=== PATIENT | male | born 1960 | race Caucasian/White ===

== ENCOUNTER → 2022-08-09 | Outpatient (CLI) | payer OTHER | LOC: M RAD 12:01 | PROVIDERS: ATTEND Internal Medicine Pulmonary Disease | DX: J61 Pneumoconiosis due to asbestos and other mineral fibers (principal) ==

== ENCOUNTER → 2024-01-14 | Outpatient (CLI) | payer OTHER | LOC: M RAD 15:21 | PROVIDERS: ATTEND Internal Medicine Pulmonary Disease | DX: J61 Pneumoconiosis due to asbestos and other mineral fibers (principal); J44.9 Chronic obstructive pulmonary disease, unspecified; Z87.891 Personal history of nicotine dependence ==

== ENCOUNTER 2024-02-09 16:41 | Inpatient (IN) | payer OTHER ==
[~2024-02-09] VITALS: Ht 172.7 cm; Wt 81.5 kg
[2024-02-09] MEDS ORDERED: MOM 30ML SUSPENSION UDC PO PRN (18:45)
[2024-02-09 19:07] VITALS: BP 148/82; TEMP 97.9; O2SAT 97
[2024-02-09] MEDS ORDERED: FURO20TA2 PO (19:24)
[2024-02-09] MEDS ORDERED: XARE20TA PO (19:24)
[2024-02-09] MEDS ORDERED: SPIR12.9 INH (19:24)
[2024-02-09] MEDS ORDERED: SERT-141 PO (19:24)
[2024-02-09] MEDS ORDERED: ADV250INH INH (19:24)
[2024-02-09] MEDS ORDERED: FERR324T2 PO (19:24)
[2024-02-09] MEDS ORDERED: VENTAER INH (19:24)
[2024-02-09] MEDS ORDERED: CARV25TA PO (19:24)
[2024-02-09] MEDS ORDERED: HOME MED LIST COMPLETE! XX SCH (19:25)
[2024-02-09 19:52] LABS: HEMOGLOBIN 12.1 g/dl (13.5-17.5); MEAN CORPUSCULAR HEMOGLOBIN 31.9 pg (27.0-33.0); MEAN CORPUSCULAR HGB CONC 34.6 g/dl (32.0-36.5); MEAN CORPUSCULAR VOLUME 92.3 fl (80.0-96.0); PLATELET COUNT, AUTOMATED 281 10^3/uL (150-450); RED BLOOD COUNT 3.79 10^6/uL (4.30-6.10)
[2024-02-09 20:00] VITALS: BP 132/90; TEMP 97.9; O2SAT 96
[2024-02-09] MEDS: ADVAIR HFA 115/21MCG INHALER INH SCH (20:00)
[2024-02-09 20:25] LABS: ALBUMIN 2.3 G/DL (3.2-5.2); BILIRUBIN,TOTAL 1.1 MG/DL (0.3-1.2); CALCIUM LEVEL 8.6 MG/DL (8.3-10.6); CREATININE FOR GFR 4.4 MG/DL (0.70-1.30); GLOMERULAR FILTRATION RATE 14.4 (>49); POTASSIUM SERUM 3.7 MMOL/L (3.5-5.1); TOTAL PROTEIN 6.1 G/DL (5.7-8.2)
[2024-02-09] MEDS: INSULIN LISPRO (NovoLOG) PER UNIT SC SCH (21:00)
[2024-02-09] MEDS ORDERED: DEXTROSE 50% 50ML SYRINGE IV PRN (21:05)
[2024-02-09] MEDS ORDERED: GLUCOSE 4 GM CHEW PO PRN (21:05)
[2024-02-09] MEDS ORDERED: GLUCAGON INJ 1MG VIAL SC PRN (21:05)
[2024-02-09] MEDS ORDERED: ALBUTEROL 90 MCG/ACT 8GM HFA INHALER INH PRN (21:45)
[2024-02-09] MEDS: FUROSEMIDE 100MG/10ML VIAL IV ONE (22:38)
[2024-02-09] MEDS: CARVedilol 12.5 MG TAB PO SCH (22:38)
[2024-02-09] MEDS: cefTRIAXone SOD 2 GM in D5W MINI-BAG PLUS 50 ML IV SCH (22:39)
[2024-02-09] MEDS: LIDOCAINE 5% (LIDODERM) PATCH TD SCH (22:39)
[2024-02-09] MEDS: KCL 20MEQ in NS 1000ML 1,000 ML IV SCH (22:40)
[2024-02-09] MEDS: HYDROMORPHONE HCL 0.5 MG/ 0.5 ML SYRINGE IV PRN (23:00)
[2024-02-09] MEDS: LIDOCAINE 2% 5ML JELLY UROJET TOP PRN (23:01)
[2024-02-10] VITALS (9 sets, daily range): BP systolic 102–159; BP diastolic 55–89; TEMP 97.5–98.8; O2SAT 90–98
[2024-02-10] MEDS: INSULIN LISPRO (NovoLOG) PER UNIT SC SCH (07:30)
[2024-02-10] MEDS: TIOTROPIUM INHALER/CAPSULE (SPIRIVA) INH SCH (08:00)
[2024-02-10] MEDS: SERTRALINE HCL 25 MG TABLET PO SCH (08:33)
[2024-02-10 09:32] LABS: HEMATOCRIT 37.2 % (42.0-52.0); HEMOGLOBIN 12.7 g/dl (13.5-17.5); MEAN CORPUSCULAR HEMOGLOBIN 31.8 pg (27.0-33.0); MEAN CORPUSCULAR HGB CONC 34.1 g/dl (32.0-36.5); MEAN CORPUSCULAR VOLUME 93.2 fl (80.0-96.0); PLATELET COUNT, AUTOMATED 319 10^3/uL (150-450); RED BLOOD COUNT 3.99 10^6/uL (4.30-6.10); WHITE BLOOD COUNT 11.6 10^3/uL (4.0-10.0)
[2024-02-10 09:57] LABS: ALBUMIN 2.3 G/DL (3.2-5.2); CREATININE FOR GFR 1.49 MG/DL (0.70-1.30); GLOMERULAR FILTRATION RATE 50.4 (>49); PHOSPHORUS LEVEL 4.2 MG/DL (2.4-5.1); POTASSIUM SERUM 3.4 MMOL/L (3.5-5.1)
[2024-02-10] MEDS: KCL 10MEQ/100ML SWI (KRUN) 10 MEQ in IV 1 EA IV ONE (12:14)
[2024-02-10] MEDS ORDERED: fentaNYL 100 MCG/2 ML INJECTION As Ordered ONE (12:56)
[2024-02-10] MEDS ORDERED: propofoL 200 MG/20 ML VIAL As Ordered ONE (12:56)
[2024-02-10] MEDS ORDERED: LIDOCAINE 2% 100MG/5ML SDV (FOR ANES.) As Ordered ONE (12:57)
[2024-02-10] MEDS ORDERED: ROCURONIUM BROMIDE 50MG/5ML VIAL As Ordered ONE (12:57)
[2024-02-10] MEDS: ceFAZolin 2 GM/D5W 50 ML IV BAG As Ordered ONE (13:57)
[2024-02-10] MEDS: LIDOCAINE 2% JELLY 6ML SYRINGE As Ordered ONE (14:06)
[2024-02-10] MEDS: LR 1,000 ML IV SCH (14:15)
[2024-02-10] MEDS ORDERED: fentaNYL 100 MCG/2 ML INJECTION IV PRN (14:15)
[2024-02-10] MEDS ORDERED: ONDANSETRON 4MG 2ML VIAL IV PRN (14:15)
[2024-02-10] MEDS ORDERED: HYDROMORPHONE HCL 0.5 MG/ 0.5 ML SYRINGE IV PRN (14:15)
[2024-02-10] MEDS ORDERED: oxyCODONE 5MG TAB PO PRN (14:15)
[2024-02-10] MEDS: TAMSULOSIN 0.4 MG CAP PO SCH (15:47)
[2024-02-10] MEDS: FINASTERIDE 5MG TAB PO SCH (15:47)
[2024-02-10 16:08] LABS: APPEARANCE, URINE HAZY (CLEAR); BACTERIA, URINE AUTO NEGATIVE (NEGATIVE); BILIRUBIN, URINE AUTO NEGATIVE (NEGATIVE); BLOOD, URINE BLOOD 3+ (NEGATIVE); COLOR, URINE YELLOW (YELLOW); GLUCOSE, URINE (UA) AUTO NEGATIVE (NEGATIVE); KETONE, URINE AUTO NEGATIVE (NEGATIVE); LEUKOCYTE ESTERASE, URINE AUTO 1+ (NEGATIVE); NITRITE, URINE AUTO NEGATIVE (NEGATIVE); PROTEIN, URINE AUTO 2+ mg/dL (NEGATIVE); RBC, URINE AUTO TNTC /HPF (0-3); SQUAMOUS EPITHELIAL CELL UR AU 0 /HPF (0-6); UROBILINOGEN, URINE AUTO 0.2 mg/dL (0.0-2.0); WBC, URINE AUTO 22 /HPF (0-3)
[2024-02-10] MEDS: ACETAMINOPHEN TAB 650MG DOSE (2X325MG) PO PRN (18:36)
[2024-02-11] VITALS (7 sets, daily range): BP systolic 110–150; BP diastolic 76–100; TEMP 97.3–98.8; O2SAT 93–95
[2024-02-11 05:50] LABS: HEMATOCRIT 33.5 % (42.0-52.0); HEMOGLOBIN 10.9 g/dl (13.5-17.5); MEAN CORPUSCULAR HEMOGLOBIN 31.2 pg (27.0-33.0); MEAN CORPUSCULAR HGB CONC 32.5 g/dl (32.0-36.5); PLATELET COUNT, AUTOMATED 252 10^3/uL (150-450); RED BLOOD COUNT 3.49 10^6/uL (4.30-6.10); WHITE BLOOD COUNT 11.4 10^3/uL (4.0-10.0)
[2024-02-11 06:18] LABS: ALKALINE PHOSPHATASE 102 U/L (46-116); ALT/SGPT 12 U/L (7.0-40); AST/SGOT 23 U/L (<34); BILIRUBIN,TOTAL 0.6 MG/DL (0.3-1.2); BLOOD UREA NITROGEN 15 MG/DL (9-23); CALCIUM LEVEL 7.9 MG/DL (8.3-10.6); CARBON DIOXIDE LEVEL 36 MMOL/L (20-31); CHLORIDE LEVEL 106 MMOL/L (98-107); CREATININE FOR GFR 0.74 MG/DL (0.70-1.30); GLOMERULAR FILTRATION RATE > 60.0 (>49); GLUCOSE, FASTING 134 MG/DL (74-106); POTASSIUM SERUM 3.5 MMOL/L (3.5-5.1); SODIUM LEVEL 142 MMOL/L (136-145); TOTAL PROTEIN 5.6 G/DL (5.7-8.2)
[2024-02-11 11:20] LABS: INR 1.36; PARTIAL THROMBOPLASTIN TIME 33.6 SECONDS (24.8-34.2); PROTHROMBIN TIME 16.3 SECONDS (12.5-14.5)
[2024-02-11] MEDS: POTASSIUM CHLORIDE 10MEQ SR TABLET PO ONE (11:22)
[2024-02-12 04:00] VITALS: BP 144/87; TEMP 97.5; O2SAT 94
[2024-02-12 05:53] LABS: HEMATOCRIT 33.3 % (42.0-52.0); MEAN CORPUSCULAR HEMOGLOBIN 31.6 pg (27.0-33.0); MEAN CORPUSCULAR VOLUME 95.7 fl (80.0-96.0); PLATELET COUNT, AUTOMATED 242 10^3/uL (150-450); RED BLOOD COUNT 3.48 10^6/uL (4.30-6.10); WHITE BLOOD COUNT 11.4 10^3/uL (4.0-10.0)
[2024-02-12 06:24] LABS: BLOOD UREA NITROGEN 9 MG/DL (9-23); CALCIUM LEVEL 7.5 MG/DL (8.3-10.6); CARBON DIOXIDE LEVEL 26 MMOL/L (20-31); CHLORIDE LEVEL 109 MMOL/L (98-107); CREATININE FOR GFR 0.55 MG/DL (0.70-1.30); GLOMERULAR FILTRATION RATE > 60.0 (>49); GLUCOSE, FASTING 84 MG/DL (74-106); PHOSPHORUS LEVEL 2.2 MG/DL (2.4-5.1); POTASSIUM SERUM 3.8 MMOL/L (3.5-5.1); SODIUM LEVEL 139 MMOL/L (136-145)
[2024-02-12 09:04] VITALS: BP 123/88
[2024-02-12] MEDS ORDERED: ISOVUE-370 76% 100ML VIAL As Ordered ONE (10:04)
[2024-02-12 10:45] VITALS: BP 146/95; TEMP 98.1; O2SAT 95
[2024-02-12] MEDS ORDERED: CEFD1CAP9 PO (11:08)
[2024-02-12] MEDS ORDERED: FLOM0.4C39 PO (11:08)
[2024-02-12] MEDS ORDERED: FINA5TAB2 PO (11:08)
[2024-02-12] MEDS ORDERED: LIDO1PAD TOP (11:09)
[2024-02-12 12:00] VITALS: BP 146/94; TEMP 98.2; O2SAT 94
== END 2024-02-12 15:09 | disposition home or self-care (01) | DRG 663 ==
LOC: UNDOADMIN 16:42 → M MSPAV 16:42
PROVIDERS: ADMIT Hospitalist; ATTEND Internal Medicine
PROC: 0W3R8ZZ Control Bleeding in Genitourinary Tract, Via Natural or Artificial Opening Endoscopic (ICD-10-PCS; principal; 2024-02-10 13:00)
DX: N30.91 Cystitis, unspecified with hematuria (principal); N17.9 Acute kidney failure, unspecified; K76.6 Portal hypertension; D62 Acute posthemorrhagic anemia; N12 Tubulo-interstitial nephritis, not specified as acute or chronic; N13.30 Unspecified hydronephrosis; E87.3 Alkalosis; J44.9 Chronic obstructive pulmonary disease, unspecified; K74.60 Unspecified cirrhosis of liver; J61 Pneumoconiosis due to asbestos and other mineral fibers; I10 Essential (primary) hypertension; J84.10 Pulmonary fibrosis, unspecified; I48.91 Unspecified atrial fibrillation; K21.9 Gastro-esophageal reflux disease without esophagitis; G47.33 Obstructive sleep apnea (adult) (pediatric); N40.1 Benign prostatic hyperplasia with lower urinary tract symptoms; R74.01 Elevation of levels of liver transaminase levels; Z79.899 Other long term (current) drug therapy; Z88.8 Allergy status to other drugs, medicaments and biological substances; F32.A Depression, unspecified; M54.2 Cervicalgia; M54.50 Low back pain, unspecified; Z87.891 Personal history of nicotine dependence; K59.00 Constipation, unspecified; I25.10 Atherosclerotic heart disease of native coronary artery without angina pectoris

== ENCOUNTER → 2024-07-09 | Outpatient (REF) | payer OTHER ==
[~2024-07-09] MED LIST: ADVA1AER9 INH; CARV25TA PO; CEFD1CAP9 PO; FERR324T2 PO; FINA5TAB2 PO; FLOM0.4C39 PO; FLUT1BLS2 IH; FURO20TA2 PO; LIDO1PAD TOP; SERT-141 PO; SPIR-10 PO; SPIR12.9 INH; TAMS1CAP17 PO; TRAZ-257 PO; VENTAER INH; XARE20TA PO; [UNRECOGNIZED DRUG - OTHER]
[2024-07-09 18:58] LABS: APPEARANCE, URINE CLEAR (CLEAR); BACTERIA, URINE AUTO NEGATIVE (NEGATIVE); BILIRUBIN, URINE AUTO NEGATIVE (NEGATIVE); BLOOD, URINE BLOOD 3+ (NEGATIVE); COLOR, URINE YELLOW (YELLOW); GLUCOSE, URINE (UA) AUTO NEGATIVE (NEGATIVE); KETONE, URINE AUTO NEGATIVE (NEGATIVE); LEUKOCYTE ESTERASE, URINE AUTO 2+ (NEGATIVE); NITRITE, URINE AUTO NEGATIVE (NEGATIVE); PROTEIN, URINE AUTO 1+ mg/dL (NEGATIVE); RBC, URINE AUTO 126 /HPF (0-3); SPECIFIC GRAVITY URINE AUTO 1.006 (1.002-1.035); SQUAMOUS EPITHELIAL CELL UR AU 0 /HPF (0-6); WBC, URINE AUTO 22 /HPF (0-3)
== END ==
LOC: M SMT 17:03
PROVIDERS: ATTEND Urology
DX: N40.0 Benign prostatic hyperplasia without lower urinary tract symptoms (principal)

== ENCOUNTER 2024-08-03 06:57 | Day surgery (SDC) | payer OTHER ==
[~2024-08-03] VITALS: Ht 172.7 cm; Wt 73.2 kg
[~2024-08-03 06:57] MED LIST changes: +GLYCOPYRROLATE INJ 0.2 MG/ML 2 ML VIAL As Ordered ONE; +LIDOCAINE 2% 100MG/5ML SDV (FOR ANES.) As Ordered ONE; +MIDAZOLAM INJ 2MG/2ML VIAL As Ordered ONE; +ONDANSETRON 4MG 2ML VIAL As Ordered ONE; +fentaNYL 100 MCG/2 ML INJECTION As Ordered ONE; +propofoL 200 MG/20 ML VIAL As Ordered ONE
[2024-08-03] MEDS ORDERED: CARV6.25 PO (08:14)
[2024-08-03] MEDS: NS (Normal Saline) 0.9% 1,000 ML IV SCH (08:35)
[2024-08-03] MEDS: ceFAZolin SOD 2 GM in IV 1 EA IV ONE (08:47)
[2024-08-03] MEDS: CIPROFLOXACIN 400 MG in IV 1 EA IV ONE (08:55)
[2024-08-03] MEDS ORDERED: ACETAMINOPHEN 1000MG/100ML IV BAG As Ordered ONE (09:08)
[2024-08-03] MEDS ORDERED: PHENYLephrine 500MCG 5ML (100MCG/ML) SYRINGE As Ordered ONE (09:26)
[2024-08-03] MEDS ORDERED: CIPR-249 PO (10:10)
[2024-08-03] MEDS ORDERED: HYDROMORPHONE HCL 0.5 MG/ 0.5 ML SYRINGE IV PRN (10:10)
[2024-08-03] MEDS ORDERED: fentaNYL 100 MCG/2 ML INJECTION IV PRN (10:10)
[2024-08-03] MEDS ORDERED: oxyCODONE 5MG TAB PO PRN (10:10)
[2024-08-03] MEDS ORDERED: NS (Normal Saline) 0.9% 1,000 ML IV SCH (10:10)
[2024-08-03] MEDS ORDERED: ONDANSETRON 4MG 2ML VIAL IV PRN (10:10)
[2024-08-03] MEDS ORDERED: OXYB5TAB14 PO (10:10)
[2024-08-03 11:34] VITALS: BP 131/74; TEMP 97.6; O2SAT 97
== END 2024-08-03 11:43 | disposition home or self-care (01) ==
LOC: M SDC 06:57
PROVIDERS: ATTEND Urology
DX: N40.1 Benign prostatic hyperplasia with lower urinary tract symptoms (principal); I48.91 Unspecified atrial fibrillation; K57.92 Diverticulitis of intestine, part unspecified, without perforation or abscess without bleeding; D64.9 Anemia, unspecified; F32.A Depression, unspecified; J44.9 Chronic obstructive pulmonary disease, unspecified; G47.33 Obstructive sleep apnea (adult) (pediatric); Z79.899 Other long term (current) drug therapy; Z79.51 Long term (current) use of inhaled steroids; Z88.8 Allergy status to other drugs, medicaments and biological substances
CPT/HCPCS: 52601; 88305; J0131; J0690; J0744; J1100; J1596; J2250; J2371; J2405; J3010

== ENCOUNTER → 2025-01-18 | Outpatient (CLI) | payer OTHER ==
[~2025-01-18] MED LIST changes: +CARV6.25 PO; +CIPR-249 PO; -FLOM0.4C39 PO; -GLYCOPYRROLATE INJ 0.2 MG/ML 2 ML VIAL As Ordered ONE; -LIDOCAINE 2% 100MG/5ML SDV (FOR ANES.) As Ordered ONE; -MIDAZOLAM INJ 2MG/2ML VIAL As Ordered ONE; -ONDANSETRON 4MG 2ML VIAL As Ordered ONE; +OXYB5TAB14 PO; +TAMS-18 PO; -fentaNYL 100 MCG/2 ML INJECTION As Ordered ONE; -propofoL 200 MG/20 ML VIAL As Ordered ONE
== END ==
LOC: M CLY 08:07
PROVIDERS: ATTEND Internal Medicine Pulmonary Disease
DX: J61 Pneumoconiosis due to asbestos and other mineral fibers (principal); I70.0 Atherosclerosis of aorta

== ENCOUNTER → 2025-01-20 | Outpatient (REF) | payer OTHER ==
[2025-01-21 11:38] LABS: PSA % FREE 10.0 % (calc) (>25); PSA FREE 0.1 ng/mL; PSA TOTAL 1.0 ng/mL (< OR = 4.0)
== END ==
LOC: M SFHCCLAY 09:00
PROVIDERS: ATTEND Urology
DX: R97.20 Elevated prostate specific antigen [PSA] (principal)

== ENCOUNTER → 2025-01-28 | Outpatient (REF) | payer OTHER ==
[2025-01-28 13:23] LABS: CALCIUM LEVEL 8.1 MG/DL (8.3-10.6); CARBON DIOXIDE LEVEL 31 MMOL/L (20-31); CHLORIDE LEVEL 107 MMOL/L (98-107); CREATININE FOR GFR 0.67 MG/DL (0.70-1.30); GLOMERULAR FILTRATION RATE > 90.0 (>49); POTASSIUM SERUM 4.1 MMOL/L (3.5-5.1); SODIUM LEVEL 144 MMOL/L (136-145)
== END ==
LOC: M SFHCCLAY 08:50
PROVIDERS: ATTEND Urology
DX: N40.0 Benign prostatic hyperplasia without lower urinary tract symptoms (principal)

== ENCOUNTER 2025-03-17 18:35 | Inpatient (IN) | payer OTHER ==
[~2025-03-17] VITALS: Ht 172.7 cm; Wt 77.7 kg
[~2025-03-17 18:35] MED LIST changes: -FLUT1BLS2 IH; +FLUT1BLS2 INH
[2025-03-17 21:25] LABS: BASO # 0.1 10^3/uL (0.0-0.2); BASO % 0.9 % (0.0-1.0); EOS # 0.2 10^3/uL (0.0-0.5); EOS % 3.6 % (0.0-3.0); LYMPH # 0.6 10^3/uL (1.5-5.0); LYMPH % 10.7 % (24.0-44.0); MONO # 0.6 10^3/uL (0.0-0.8); MONO % 9.5 % (2.0-8.0); NEUTROPHILS # 4.3 10^3/uL (1.5-8.5); NEUTROPHILS % 75.0 % (36.0-66.0); PLATELET COUNT, AUTOMATED 178 10^3/uL (150-450)
[2025-03-17] MEDS ORDERED: ISOVUE-370 76% 100 ML VIAL As Ordered ONE (21:33)
[2025-03-17 21:49] LABS: INR 1.32
[2025-03-17 21:50] LABS: ALT/SGPT 14 U/L (7.0-40); AST/SGOT 30 U/L (<34)
[2025-03-17] MEDS: FUROSEMIDE 40 MG/4 ML VIAL IV ONE (22:41)
[2025-03-18] VITALS (8 sets, daily range): BP systolic 107–160; BP diastolic 69–110; TEMP 97.4–98.9; O2SAT 93–98
[2025-03-18] MEDS ORDERED: MAALOX 30 ML SUSP *UDC PO PRN (01:05)
[2025-03-18] MEDS ORDERED: MOM 30 ML SUSPENSION UDC PO PRN (01:05)
[2025-03-18 01:59] LABS: CALCIUM LEVEL 7.6 MG/DL (8.3-10.6); CARBON DIOXIDE LEVEL 31 MMOL/L (20-31); CHLORIDE LEVEL 104 MMOL/L (98-107); CREATININE FOR GFR 0.71 MG/DL (0.70-1.30); GLOMERULAR FILTRATION RATE > 90.0 (>49); MAGNESIUM LEVEL 1.6 MG/DL (1.8-2.4); PHOSPHORUS LEVEL 3.3 MG/DL (2.4-5.1); POTASSIUM SERUM 4.1 MMOL/L (3.5-5.1); SODIUM LEVEL 141 MMOL/L (136-145)
[2025-03-18] MEDS: METOPROLOL TART 25 MG TABLET PO ONE (02:25)
[2025-03-18] MEDS: ENOXAPARIN 100 MG/1 ML SYRINGE (J1650 PER 10MG) SC ONE (02:37)
[2025-03-18] MEDS: ACETAMINOPHEN 325 MG TAB PO PRN (02:38)
[2025-03-18] MEDS: MAGNESIUM OXIDE 400 MG TAB PO ONE (04:22)
[2025-03-18] MEDS: MAG SULF 1GM/100ML (MAG RUN) 1 GM in IV 1 EA IV SCH (04:23)
[2025-03-18 06:40] LABS: PLATELET COUNT, AUTOMATED 167 10^3/uL (150-450)
[2025-03-18 07:08] LABS: CALCIUM LEVEL 7.5 MG/DL (8.3-10.6); CARBON DIOXIDE LEVEL 33 MMOL/L (20-31); CHLORIDE LEVEL 103 MMOL/L (98-107); CREATININE FOR GFR 0.72 MG/DL (0.70-1.30); GLOMERULAR FILTRATION RATE > 90.0 (>49); MAGNESIUM LEVEL 2.0 MG/DL (1.8-2.4); PHOSPHORUS LEVEL 3.6 MG/DL (2.4-5.1); POTASSIUM SERUM 3.6 MMOL/L (3.5-5.1); SODIUM LEVEL 141 MMOL/L (136-145)
[2025-03-18] MEDS ORDERED: FUROSEMIDE 100 MG/10 ML VIAL IV SCH (09:00)
[2025-03-18] MEDS ORDERED: FINA5TAB2 PO (09:43)
[2025-03-18] MEDS ORDERED: POTA-151 PO (09:43)
[2025-03-18] MEDS ORDERED: OXYB5TAB14 PO (09:43)
[2025-03-18] MEDS ORDERED: HOME MED LIST COMPLETE! XX SCH (09:45)
[2025-03-18] MEDS: METOPROLOL TART 12.5 MG PER 1/2 TAB PO SCH (09:52)
[2025-03-18] MEDS: PANTOPRAZOLE 40MG TAB PO SCH (09:52)
[2025-03-18] MEDS: FUROSEMIDE 100 MG/10 ML VIAL IV ONE (09:53)
[2025-03-18] MEDS: ENOXAPARIN 100 MG/1 ML SYRINGE (J1650 PER 10MG) SC SCH (11:00)
[2025-03-18] MEDS ORDERED: ALBUTEROL 90 MCG/ACT 8 GM HFA INHALER INH PRN (11:05)
[2025-03-18] MEDS: FINASTERIDE 5 MG TAB PO SCH (11:20)
[2025-03-18] MEDS: SERTRALINE HCL 50 MG TAB PO SCH (11:21)
[2025-03-18 12:23] LABS: CREATININE, URINE 20.4 MG/DL; MALB URINE SIEMENS 9.0 MG/L; MAU/CREAT RATIO 44.1 MCG/MG (0.0-30.0)
[2025-03-18] MEDS: TIOTROPIUM BROM 2.5MCG/ACTUATION 4GM INH INH SCH (12:51)
[2025-03-18] MEDS ORDERED: XARE20TA PO (14:19)
[2025-03-18] MEDS ORDERED: MYRB25TA PO (14:37)
[2025-03-18 15:50] LABS: APPEARANCE, URINE CLEAR (CLEAR); BACTERIA, URINE AUTO NEGATIVE (NEGATIVE); BILIRUBIN, URINE AUTO NEGATIVE (NEGATIVE); BLOOD, URINE BLOOD NEGATIVE (NEGATIVE); GLUCOSE, URINE (UA) AUTO NEGATIVE (NEGATIVE); KETONE, URINE AUTO NEGATIVE (NEGATIVE); LEUKOCYTE ESTERASE, URINE AUTO NEGATIVE (NEGATIVE); NITRITE, URINE AUTO NEGATIVE (NEGATIVE); PROTEIN, URINE AUTO NEGATIVE (NEGATIVE); RBC, URINE AUTO 3 /HPF (0-3); SPECIFIC GRAVITY URINE AUTO 1.009 (1.002-1.035); SQUAMOUS EPITHELIAL CELL UR AU 0 /HPF (0-6); UROBILINOGEN, URINE AUTO 0.2 mg/dL (0.0-2.0); WBC, URINE AUTO 0 /HPF (0-3)
[2025-03-18] MEDS: SPIRONOLACTONE 50 MG TAB PO SCH (17:07)
[2025-03-18] MEDS: RIVAROXABAN 20MG TAB PO SCH (18:11)
[2025-03-18] MEDS: traZODone 100 MG TAB PO SCH (20:37)
[2025-03-19] VITALS (10 sets, daily range): BP systolic 128–156; BP diastolic 71–90; TEMP 97.9–98.4; O2SAT 94–98
[2025-03-19 06:19] LABS: PLATELET COUNT, AUTOMATED 202 10^3/uL (150-450)
[2025-03-19 06:37] LABS: CALCIUM LEVEL 7.7 MG/DL (8.3-10.6); CARBON DIOXIDE LEVEL 31 MMOL/L (20-31); CHLORIDE LEVEL 104 MMOL/L (98-107); CREATININE FOR GFR 0.68 MG/DL (0.70-1.30); GLOMERULAR FILTRATION RATE > 90.0 (>49); MAGNESIUM LEVEL 1.6 MG/DL (1.8-2.4); PHOSPHORUS LEVEL 3.0 MG/DL (2.4-5.1); POTASSIUM SERUM 3.6 MMOL/L (3.5-5.1); SODIUM LEVEL 140 MMOL/L (136-145)
[2025-03-19] MEDS: MAG SULF 1GM/100ML (MAG RUN) 1 GM in IV 1 EA IV SCH (08:46)
[2025-03-19] MEDS: FUROSEMIDE 100 MG/10 ML VIAL IV SCH (08:47)
[2025-03-20] VITALS (7 sets, daily range): BP systolic 104–152; BP diastolic 59–98; TEMP 97.7–98.1; O2SAT 91–99
[2025-03-20 05:55] LABS: PLATELET COUNT, AUTOMATED 207 10^3/uL (150-450)
[2025-03-20 06:19] LABS: CALCIUM LEVEL 7.9 MG/DL (8.3-10.6); CARBON DIOXIDE LEVEL 32 MMOL/L (20-31); CHLORIDE LEVEL 102 MMOL/L (98-107); CREATININE FOR GFR 0.75 MG/DL (0.70-1.30); GLOMERULAR FILTRATION RATE > 90.0 (>49); MAGNESIUM LEVEL 1.6 MG/DL (1.8-2.4); PHOSPHORUS LEVEL 2.9 MG/DL (2.4-5.1); POTASSIUM SERUM 3.5 MMOL/L (3.5-5.1); SODIUM LEVEL 142 MMOL/L (136-145)
[2025-03-20] MEDS: POTASSIUM CHLORIDE 10MEQ SR TABLET PO ONE (09:11)
[2025-03-20] MEDS: MAG SULF 1GM/100ML (MAG RUN) 1 GM in IV 1 EA IV SCH (09:12)
[2025-03-21] VITALS (7 sets, daily range): BP systolic 117–128; BP diastolic 63–88; TEMP 97.5–98.6; O2SAT 92–95
[2025-03-21 06:30] LABS: PLATELET COUNT, AUTOMATED 210 10^3/uL (150-450)
[2025-03-21 06:58] LABS: CALCIUM LEVEL 7.9 MG/DL (8.3-10.6); CARBON DIOXIDE LEVEL 34 MMOL/L (20-31); CHLORIDE LEVEL 102 MMOL/L (98-107); CREATININE FOR GFR 0.78 MG/DL (0.70-1.30); GLOMERULAR FILTRATION RATE > 90.0 (>49); MAGNESIUM LEVEL 1.6 MG/DL (1.8-2.4); PHOSPHORUS LEVEL 3.3 MG/DL (2.4-5.1); POTASSIUM SERUM 3.5 MMOL/L (3.5-5.1); SODIUM LEVEL 140 MMOL/L (136-145)
[2025-03-21] MEDS: POTASSIUM CHLORIDE 10MEQ SR TABLET PO ONE (08:46)
[2025-03-21] MEDS: MAG SULF 1GM/100ML (MAG RUN) 1 GM in IV 1 EA IV SCH (08:50)
[2025-03-21] MEDS: MAGNESIUM OXIDE 400 MG TAB PO SCH (10:56)
[2025-03-21] MEDS: FERROUS SULFATE 325 MG TAB PO SCH (10:56)
[2025-03-21] MEDS: RIVAROXABAN 20MG TAB PO SCH (17:18)
[2025-03-21] MEDS: ADVAIR HFA 115/21 MCG INHALER INH SCH (19:23)
[2025-03-22 05:12] VITALS: BP 118/65; TEMP 98.1; O2SAT 92
[2025-03-22 06:56] LABS: PLATELET COUNT, AUTOMATED 211 10^3/uL (150-450)
[2025-03-22 07:27] LABS: CALCIUM LEVEL 7.9 MG/DL (8.3-10.6); CARBON DIOXIDE LEVEL 33 MMOL/L (20-31); CHLORIDE LEVEL 102 MMOL/L (98-107); CREATININE FOR GFR 0.79 MG/DL (0.70-1.30); GLOMERULAR FILTRATION RATE > 90.0 (>49); MAGNESIUM LEVEL 1.7 MG/DL (1.8-2.4); PHOSPHORUS LEVEL 3.3 MG/DL (2.4-5.1); POTASSIUM SERUM 3.8 MMOL/L (3.5-5.1); SODIUM LEVEL 142 MMOL/L (136-145)
[2025-03-22 08:00] VITALS: BP 117/66; TEMP 98.2; O2SAT 95
[2025-03-22] MEDS: MAGNESIUM OXIDE 400 MG TAB PO ONE (08:28)
[2025-03-22 12:00] VITALS: BP 120/67; TEMP 97.9; O2SAT 97
[2025-03-22 16:26] VITALS: BP 119/68; TEMP 97.7; O2SAT 95
[2025-03-22] MEDS: MAGNESIUM OXIDE 400 MG TAB PO SCH (17:02)
[2025-03-22 20:08] VITALS: BP 123/67; TEMP 98.1; O2SAT 96
[2025-03-23 00:50] VITALS: BP 106/68; TEMP 98.1; O2SAT 93
[2025-03-23 04:06] VITALS: BP 108/68; TEMP 98.1; O2SAT 94
[2025-03-23 07:38] LABS: PLATELET COUNT, AUTOMATED 221 10^3/uL (150-450)
[2025-03-23 07:59] VITALS: BP 113/68; TEMP 98.1; O2SAT 93
[2025-03-23 08:12] LABS: CALCIUM LEVEL 7.9 MG/DL (8.3-10.6); CARBON DIOXIDE LEVEL 32 MMOL/L (20-31); CHLORIDE LEVEL 104 MMOL/L (98-107); CREATININE FOR GFR 0.70 MG/DL (0.70-1.30); GLOMERULAR FILTRATION RATE > 90.0 (>49); MAGNESIUM LEVEL 1.8 MG/DL (1.8-2.4); PHOSPHORUS LEVEL 3.5 MG/DL (2.4-5.1); POTASSIUM SERUM 3.9 MMOL/L (3.5-5.1); SODIUM LEVEL 143 MMOL/L (136-145)
[2025-03-23 08:54] VITALS: BP 113/68
[2025-03-23] MEDS: FUROSEMIDE 40 MG TAB PO SCH (08:54)
[2025-03-23] MEDS ORDERED: ALDA50TA2 PO (11:23)
[2025-03-23] MEDS ORDERED: MAGN400T33 PO (11:23)
[2025-03-23] MEDS ORDERED: FURO40TA2 PO (11:23)
[2025-03-23] MEDS ORDERED: METO1TAB87 PO ×2 (11:23→12:21)
[2025-03-23 11:37] VITALS: BP 113/68; TEMP 98.1; O2SAT 95
[2025-03-23] MEDS ORDERED: LACT20EL PO (11:37)
[2025-03-23] MEDS: LACTULOSE 20 GM/30 ML SYRUP UDC PO ONE (12:10)
== END 2025-03-23 13:08 | disposition home or self-care (01) | DRG 433 ==
LOC: M ED 18:35 → M ED INP 03-18 01:03 → M MSPAV 03-18 02:14
PROVIDERS: ADMIT Student in an Organized Health Care Education/Training Program; ATTEND Student in an Organized Health Care Education/Training Program
DX: K70.31 Alcoholic cirrhosis of liver with ascites (principal); J94.8 Other specified pleural conditions; I31.8 Other specified diseases of pericardium; J81.1 Chronic pulmonary edema; I48.91 Unspecified atrial fibrillation; E78.5 Hyperlipidemia, unspecified; G47.33 Obstructive sleep apnea (adult) (pediatric); E83.42 Hypomagnesemia; E88.09 Other disorders of plasma-protein metabolism, not elsewhere classified; F32.A Depression, unspecified; Z79.01 Long term (current) use of anticoagulants; I27.20 Pulmonary hypertension, unspecified; J84.10 Pulmonary fibrosis, unspecified; E87.70 Fluid overload, unspecified; F10.20 Alcohol dependence, uncomplicated; I10 Essential (primary) hypertension; Z77.090 Contact with and (suspected) exposure to asbestos; N50.89 Other specified disorders of the male genital organs; Z87.891 Personal history of nicotine dependence; Z79.899 Other long term (current) drug therapy; Z88.8 Allergy status to other drugs, medicaments and biological substances